=== PATIENT | male | born 1955 | race Caucasian/White ===

== ENCOUNTER → 2024-07-17 12:11 | Outpatient (REF) | payer MEDICARE, SELFPAY | LOC: WOUND 12:11 | PROVIDERS: ATTENDING PHYSICIAN Surgery | DX: I87.311 Chronic venous hypertension (idiopathic) with ulcer of right lower extremity (principal); L97.212 Non-pressure chronic ulcer of right calf with fat layer exposed; I87.2 Venous insufficiency (chronic) (peripheral); E11.51 Type 2 diabetes mellitus with diabetic peripheral angiopathy without gangrene | CPT/HCPCS: 11042; 99214 ==

== ENCOUNTER → 2024-07-24 12:48 | Outpatient (REF) | payer MEDICARE, SELFPAY | LOC: WOUND 12:48 | PROVIDERS: ATTENDING PHYSICIAN Surgery | DX: I87.311 Chronic venous hypertension (idiopathic) with ulcer of right lower extremity (principal); L97.212 Non-pressure chronic ulcer of right calf with fat layer exposed; I87.2 Venous insufficiency (chronic) (peripheral); I73.9 Peripheral vascular disease, unspecified; E11.9 Type 2 diabetes mellitus without complications; I89.0 Lymphedema, not elsewhere classified | CPT/HCPCS: 11042; 93922; 93970 ==

== ENCOUNTER → 2024-08-03 10:25 | Outpatient (REF) | payer MEDICARE, SELFPAY | LOC: WOUND 10:25 | PROVIDERS: ATTENDING PHYSICIAN Surgery | DX: I87.311 Chronic venous hypertension (idiopathic) with ulcer of right lower extremity (principal); L97.212 Non-pressure chronic ulcer of right calf with fat layer exposed; I87.2 Venous insufficiency (chronic) (peripheral); I73.9 Peripheral vascular disease, unspecified; E11.9 Type 2 diabetes mellitus without complications; I89.0 Lymphedema, not elsewhere classified | CPT/HCPCS: 99213 ==

== ENCOUNTER → 2024-08-17 10:29 | Outpatient (REF) | payer MEDICARE, SELFPAY | LOC: WOUND 10:29 | PROVIDERS: ATTENDING PHYSICIAN Surgery | DX: I87.311 Chronic venous hypertension (idiopathic) with ulcer of right lower extremity (principal); L97.212 Non-pressure chronic ulcer of right calf with fat layer exposed; I87.2 Venous insufficiency (chronic) (peripheral); I73.9 Peripheral vascular disease, unspecified; I89.0 Lymphedema, not elsewhere classified | CPT/HCPCS: 99212 ==